=== PATIENT | male | born 1980 | race Caucasian/White ===

== ENCOUNTER 2017-04-22 11:50 | Emergency (ER) | payer OTHER ==
[~2017-04-22] VITALS: Ht 167.6 cm; Wt 91.0 kg
[~2017-04-22 11:50] MED LIST: ALBU8.5H3; BECL8.7A; LORA-52; PROM6.2514
[2017-04-22 11:54] VITALS: Ht 167.6 cm; Wt 91.0 kg
--- NOTE | 2017-04-22 13:47 | RADRPT ---
PROCEDURE: XR Cervical Spine. CLINICAL INDICATION: Neck Pain. TECHNIQUE: AP, open mouth odontoid and lateral views of the cervical spine were performed. The mac ges were reviewed on a PACS workstation. COMPARISON: None. FINDINGS: The vertebral body alignment, height and osseous mineralization are normal. There is no facet arthro tico. The uncovertebral joints are unremarkable. The intervertebral disc spaces are well maintained . There are no abnormal calcifications. The prevertebral soft tissues are normal. No radiopaque fore ign bodies are identified. The skull is intact. IMPRESSION: No acute fracture or dislocation. Negative exam. RPTAT: PP .Etta Raya MD, MD Date Time Electronically viewed and signed by .Etta Raya MD, on 04/22/2017 13:47 .F/
[2017-04-22] MEDS ORDERED: IBUP-1542 PO (14:05)
[2017-04-22] MEDS ORDERED: CYCL-319 PO (14:05)
--- NOTE | 2017-04-22 14:15 | ERD ---
ER Documentation Chief Complaint Date/Time DATE: 04/22/17 TIME: 14:09 Chief Complaint Complains of neck pain x 1 month HPI Patient is a 36-year-old male who presents to the emergency department with neck pain 1 month. Patient states 1 month ago he was playing baseball when he strained his neck. Patient states since that time he has had intermittent neck pain primarily in the morning. Patient states after moving around and going about his daily activities his pain improves. Patient denies any falls or trauma. Patient denies any radiation of the pain down his back. Patient denies any saddle anesthesia, urinary incontinence, stool incontinence, fevers, chills, chest pain or shortness of breath. Patient denies any numbness or tingling in his upper extremities. Patient denies any slurred speech, difficulty ambulating, unilateral weakness or LOC. Patient is a farm truck driver. ROS All systems reviewed and are negative except as per history of present illness. Medications Home Meds Active Scripts Cyclobenzaprine Hcl* (Cyclobenzaprine Hcl*) 10 Mg Tablet, 10 MG PO TID, #15 TAB Prov:ASYA PARSONS PA-C 04/22/17 Ibuprofen* (Motrin*) 600 Mg Tab, 600 MG PO Q6, #30 TAB Prov:ASYA PARSONS PA-C 04/22/17 Reported Medications Beclomethasone Dip* (Qvar 40*) 7.3 Gm Inha 04/17/10 Albuterol Sulfate* (Proair HFA*) 8.5 Gm Hfa.aer.ad 04/17/10 Loratadine (Alavert) 10 Mg Tablet 04/17/10 Promethazine Hcl* (Promethazine Hcl* Syrup) 6.25 Mg/5 Ml Syrup 04/17/10 Allergies Allergies: Coded Allergies: No Known Allergies (Verified Allergy, Mild, 04/22/17) PMhx/Soc History of Surgery: No Anesthesia Reaction: No Hx Neurological Disorder: No Hx Respiratory Disorders: No Hx Cardiac Disorders: No Hx Psychiatric Problems: No Hx Miscellaneous Medical Probl: No Hx Alcohol Use: Yes Hx Substance Use: No Hx Tobacco Use: Yes Smoking Status: Unknown if ever smoked FmHx Family History: No diabetes Physical Exam Vitals Vital Signs Date Time Temp Pulse Resp B/P Pulse Ox O2 Delivery O2 Flow Rate FiO2 04/22/17 11:54 98.3 72 20 150/71 98 Physical Exam GENERAL: Well-developed, well-nourished male. Appears in no acute distress. HEAD: Normocephalic, atraumatic. EYES: Pupils are equally reactive bilaterally. EOMs grossly intact. No conjunctival erythema. ENT: Moist mucous membranes. No uvula deviation. No kissing tonsils. NECK: Supple. No meningismus. Normal range of motion of the neck. No cervical midline tenderness. Tender to palpation of the right trapezius muscle. LUNG: Clear to auscultation bilaterally. No rhonchi, wheezing, rales or coarse breath sounds. HEART: Regular rate and rhythm. No murmurs, rubs or gallops. ABDOMEN: No scars, ecchymosis or rashes noted. Soft, nontender, and nondistended. Positive bowel sounds in all four quadrants. No rebound tenderness , no guarding. (-) McBurney's point tenderness. No CVA tenderness. BACK: No midline tenderness. EXTREMITIES: Equal pulses bilaterally. No peripheral clubbing, cyanosis or edema. No unilateral leg swelling. NEUROLOGIC: Alert and oriented. Moving all four extremities without any difficulty. Normal speech. Steady gait. SKIN: Normal color. Warm and dry. No rashes or lesions. Procedures/MDM ED COURSE: The patient was stable throughout ED course. I kept the patient and/or family informed of laboratory and diagnostic imaging results throughout the ED course. DIAGNOSTIC IMAGING: Read by radiologist. DIAGNOSTIC IMAGING REPORT Patient: LEN BOWERS : 1980 Age: 36 Sex: M MR #: [id number] DOS: 04/22/17 1243 Ordering MD: ASYA PARSONS PA-C Location: [facility] Room/Bed: PROCEDURE: XR Cervical Spine. CLINICAL INDICATION: Neck Pain. TECHNIQUE: AP, open mouth odontoid and lateral views of the cervical spine were performed. The images were reviewed on a PACS workstation. COMPARISON: None. FINDINGS: The vertebral body alignment, height and osseous mineralization are normal. There is no facet arthropathy. The uncovertebral joints are unremarkable. The intervertebral disc spaces are well maintained. There are no abnormal calcifications. The prevertebral soft tissues are normal. No radiopaque foreign bodies are identified. The skull is intact. IMPRESSION: No acute fracture or dislocation. Negative exam. RPTAT: PP .Etta Raya MD, Date Time Electronically viewed and signed by .Etta Raya MD, on 04/22/2017 13:47 .F/ CC: ASYA PARSONS PA-C MEDICAL DECISION MAKING: This is a 36-year-old male who presents with neck pain 1 month. She denies any falls or trauma. Vital signs were reviewed. Patient was afebrile. Patient was not hypoxic. Cervical spine was unremarkable. No acute fracture dislocation was noted. Physical exam findings were unremarkable. Patient had no unilateral weakness. Patient had no slurred speech. Patient was speaking in full sentences. Given these findings, the patient's presentation is most consistent with muscle spasms. I have a much lower clinical concern for cervical spine dislocation, cervical spine fracture, epidural abscess, cervical disk herniation, osteomyelitis, meningitis, whiplash injury, torticollis or any acute neurological deficit. PRESCRIPTIONS: Ibuprofen Flexeril-patient was advised not to use his medication when driving or operating machinery. DISCHARGE: At this time, patient is stable for discharge and outpatient management. Patient provided with a copy of all imaging studies obtained today. RICE therapy and ROM exercises were advised to avoid stiffness. I have instructed the patient to follow-up with his/her primary care physician in 1-2 days. I have discussed with the patient the possibility of needing to see an dermatology specialist for further workup and imaging if the pain persists. I have instructed the patient to promptly return to the ER for any new or worsening symptoms including increased pain, swelling, redness, warmth or fever. The patient and/or family expressed understanding of and agreement with this plan. All questions were answered. Home care instructions were provided. Patient's blood pressure was elevated (>120/80) but appears stable without evidence of hypertensive emergency, hypertensive urgency or end-organ failure. I had discussion with the patient about the risks of hypertension. I have advised the patient to follow up with his/her primary care physician for outpatient monitoring and treatment for hypertension in 2-3 days. I have instructed the patient to return to the ER for any new or worsening symptoms including chest pain, shortness of breath, headache, blurred vision, confusion, nausea, vomiting or LOC. Departure Diagnosis: Primary Impression: Muscle spasms of neck Additional Impression: Neck pain Condition: Stable Patient Instructions: Neck Pain, No Trauma Additional Instructions: Call your primary care doctor TOMORROW for an appointment during the next 1-2 days.See the doctor sooner or return here if your condition worsens before your appointment time. Do not take muscle relaxant when operating any machinery or driving. ASYA PARSONS PA-C Apr 22, 2017 14:15
== END 2017-04-22 14:23 | disposition home or self-care (01) ==
LOC: FTE 11:50
DX: M62.838 Other muscle spasm (principal)
CPT/HCPCS: 72040; Z7502

== ENCOUNTER 2019-04-20 16:43 | Emergency (ER) | payer OTHER ==
[~2019-04-20] VITALS: Ht 175.3 cm; Wt 96.0 kg
[~2019-04-20 16:43] MED LIST changes: -ALBU8.5H3; +ALBU8.5H8; +CYCL10TA7 PO; +IBUP-1542 PO; -PROM6.2514; +PROM6.2515
[2019-04-20 16:52] VITALS: Ht 175.3 cm; Wt 96.0 kg
[2019-04-20] MEDS ORDERED: DEXAMETHASONE 10 MG/ML 1 ML INJ IM STA (17:37)
[2019-04-20] MEDS ORDERED: IPRATROPIUM (NEB) 0.5 MG/2.5 ML AMP NEB STA (17:37)
[2019-04-20] MEDS ORDERED: ALBUTEROL 0.083% (NEB) 2.5 MG/3 ML AMP NEB STA (17:37)
[2019-04-20] MEDS ORDERED: D-ME473S2 PO (18:24)
[2019-04-20] MEDS ORDERED: AZIT250T PO (18:24)
[2019-04-20] MEDS ORDERED: MED4DP PO (18:24)
[2019-04-20] MEDS ORDERED: ALBU8.5H8 INH (18:24)
[2019-04-20 18:28] VITALS: BP 143/82; PULSE 83; RESP 20
--- NOTE | 2019-04-20 18:33 | ERD ---
ER Documentation Chief Complaint Chief Complaint NON-PRODUCTIVE COUGH X 4 DAYS, INTERMITTENT FEVERS/BODY ACHES HPI 38-year-old smoker with history of asthma presents to the ED complaining of shortness of breath, wheezing, cough x4 days. Cough is productive in nature. He denies any associated chest pain. He denies any fevers, chills, nausea, vomiting. No other complaints. He has not been taking any medications for this. ROS All systems reviewed and are negative except as per history of present illness. Medications Home Meds Active Scripts Methylprednisolone* (Medrol* DOSE PACK) 4 Mg/Dose-Pack Tab.ds.pk, 4 MG PO . DIRECTED, #1 PACKET Prov:DELLIGRIKIANIRISH-C 04/20/19 Albuterol Sulfate* (Proair HFA*) 8.5 Gm Hfa.aer.ad, 2 PUFF INH Q4H PRN for WHEEZING AND SOB, #1 INHALER Prov:IRISH LUU-C 04/20/19 Dextromethorphan Hb-Promethazine Hcl* (Promethazine DM* Syrup) 473 Ml Syrup, 5 ML PO Q6 PRN for COUGH for 7 Days, ML Prov:IRISH LUU-C 04/20/19 Azithromycin* (Zithromax*) 250 Mg Tablet, 250 MG PO .ZPACK DIRECTED, #6 TAB TAKE 500 MG (2 TABS) THE FIRST DAY THEN 250 MG (1 TAB) DAYS 2-5 Prov:IRISH LUU-C 04/20/19 Cyclobenzaprine Hcl* (Cyclobenzaprine Hcl*) 10 Mg Tablet, 10 MG PO TID, #15 TAB Prov:ASYA PARSONS PA-C 04/22/17 Ibuprofen* (Motrin*) 600 Mg Tab, 600 MG PO Q6, #30 TAB Prov:ASYA PARSONS PA-C 04/22/17 Reported Medications Beclomethasone Dip* (Qvar 40*) 7.3 Gm Inha 04/17/10 Albuterol Sulfate* (Proair HFA*) 8.5 Gm Hfa.aer.ad 04/17/10 Loratadine (Alavert) 10 Mg Tablet 04/17/10 Promethazine Hcl* (Promethazine Hcl* Syrup) 6.25 Mg/5 Ml Syrup 04/17/10 Allergies Allergies: Coded Allergies: No Known Allergies (Verified Allergy, Mild, 04/20/19) PMhx/Soc History of Surgery: No Anesthesia Reaction: No Hx Neurological Disorder: No Hx Respiratory Disorders: Yes (Asthma) Hx Cardiac Disorders: No Hx Psychiatric Problems: No Hx Miscellaneous Medical Probl: No Hx Alcohol Use: Yes (social) Hx Substance Use: No Hx Tobacco Use: Yes Smoking Status: Current every day smoker Physical Exam Vitals Vital Signs Date Temp Pulse Resp B/P (MAP) Pulse Ox O2 O2 Flow FiO2 Time Delivery Rate 04/20/19 80 20 96 21 17:53 04/20/19 98.9 78 20 156/95 97 16:52 (115) Physical Exam Const: No acute distress Head: Atraumatic Eyes: Normal Conjunctiva ENT: Normal External Ears, Nose and Mouth. Neck: Full range of motion. No meningismus. Resp: + Diffuse expiratory wheezing. No rhonchi, no rales. Good respiratory effort. Cardio: Regular rate and rhythm, no murmurs Skin: No petechiae or rashes Back: No midline or flank tenderness Ext: No cyanosis, or edema Neur: Awake and alert Psych: Normal Mood and Affect Results 24 hrs Current Medications Medications Dose Sig/Cori Start Time Status Last (Trade) Ordered Route PRN Stop Time Admin Dose Reason Admin Albuterol 2.5 mg ONCE STAT 04/20/19 DC 04/20/19 (Proventil NEB 17:37 04/20/19 17:51 0.083% (Neb)) 17:39 Ipratropium 0.5 mg ONCE STAT 04/20/19 DC 04/20/19 Marianna NEB 17:37 04/20/19 17:51 (Atrovent 17:39 0.02% (Neb)) 10 mg ONCE STAT 04/20/19 DC 04/20/19 Dexamethasone IM 17:37 04/20/19 17:45 (Decadron) 17:39 Procedures/MDM LABS & DIAGNOSTIC IMAGING: PROCEDURE: XR Chest. TECHNIQUE: Single frontal radiograph. CLINICAL INDICATION: Asthma exacerbation COMPARISON: None. FINDINGS: Mild low lung volumes. Mild streaky linear densities in the perihilar and peripheral lungs, which can represent airway thickening. Mild flattening of the hemidiaphragms which remain well defined. No evidence of focal consolidation, pneumothorax, or pleural effusion. Cardiomediastinal silhouette is within normal limits. Visualized osseous thorax is unremarkable. Overlying soft tissues are equally unremarkable. IMPRESSION: Mild streaky linear densities in the lungs with mild flattening of the hemidiaphragms, which may represent airway thickening. No evidence of focal or lobar consolidation, pleural effusion or pneumothorax. ED COURSE: The patient was given IM Decadron, albuterol, Atrovent The medication was well tolerated and the patient had market improvement in symptoms. The patient remained stable throughout ED course. MEDICAL DECISION MAKIN-year-old male with history of asthma and tobacco use presents with cough, wheezing or shortness of breath. He has no hypoxia here. Vital signs are stable. No evidence of respiratory distress. His lung sounds improved status post IM Decadron, and 1 DuoNeb treatment. Chest x-ray is negative for pneumonia however does show evidence of likely bronchitis. Given patient's tobacco use, w ill treat with antibiotics. Prescription for prednisone, and inhaler, promethazine also provided. He was told to follow-up with his primary care provider sometime this week. Strict return precautions were discussed. PRESCRIPTIONS: Zithromax, prednisone, pro-air, promethazine SPECIALIST FOLLOW UP RECOMMENDED: None Patient has been advised to follow up with primary care in 1-2 days. Smoking Cessation Therapy: Pt. was lectured for greater than 3 minutes on the health risks of continued smoking and the benefits of cessation. Blood Pressure Assessment: Patient's blood pressure was elevated (>120/80) but appears stable without evidence of hypertension emergency or urgency. The patient was counseled about the risks of hypertension and urged to pursue ou tpatient monitoring and therapy within a week with their primary care physician. Departure Diagnosis: Primary Impression: Bronchitis Condition: Stable Patient Instructions: Bronchitis With Wheezing (Adult) Referrals: COMMUNITY CLINICS YOU HAVE RECEIVED A MEDICAL SCREENING EXAM AND THE RESULTS INDICATE THAT YOU DO NOT HAVE A CONDITION THAT REQUIRES URGENT TREATMENT IN THE EMERGENCY DEPARTMENT. FURTHER EVALUATION AND TREATMENT OF YOUR CONDITION CAN WAIT UNTIL YOU ARE SEEN IN YOUR DOCTORS OFFICE WITHIN THE NEXT 1-2 DAYS. IT IS YOUR RESPONSIBILITY TO MAKE AN APPOINTMENT FOR FOLOW-UP CARE. IF YOU HAVE A PRIMARY DOCTOR --you should call your primary doctor and schedule an appointment IF YOU DO NOT HAVE A PRIMARY DOCTOR YOU CAN CALL OUR PHYSICIAN REFERRAL HOTLINE AT IF YOU CAN NOT AFFORD TO SEE A PHYSICIAN YOU CAN CHOSE FROM THE FOLLOWING [facility] [address] [facility] [address] [facility] [address] [facility] [address] [facility] [address] [facility] [address] [facility]. [facility] YOU HAVE RECEIVED A MEDICAL SCREENING EXAM AND THE RESULTS INDICATE THAT YOU DO NOT HAVE A CONDITION THAT REQUIRES URGENT TREATMENT IN THE EMERGENCY DEPARTMENT. FURTHER EVALUATION AND TREATMENT OF YOUR CONDITION CAN WAIT UNTIL YOU ARE SEEN IN YOUR DOCTORS OFFICE WITHIN THE NEXT 1-2 DAYS. IT IS YOUR RESPONSIBILITY TO MAKE AN APPOINTMENT FOR FOLOW-UP CARE. IF YOU HAVE A PRIMARY DOCTOR --you should call your primary doctor and schedule and appointment IF YOU DO NOT HAVE A PRIMARY DOCTOR YOU CAN CALL OUR PHYSICIAN REFERRAL HOTLINE AT . IF YOU CAN NOT AFFORD TO SEE A PHYSICIAN YOU CAN CHOSE FROM THE FOLLOWING [facility]: [facility] [address] [place] [address] [facility] [address] [place] [address] [facility] [address] [place] [address] Additional Instructions: Call your primary care doctor TOMORROW for an appointment during the next 2-4 days and bring all the information and medications prescribed. If the symptoms get worse and your provider is unavailable, return to the Emergency Department immediately. IRISH LUU PA-C Apr 20, 2019 18:33
== END 2019-04-20 18:28 | disposition home or self-care (01) ==
LOC: FTE 16:43
DX: J40 Bronchitis, not specified as acute or chronic (principal); F17.210 Nicotine dependence, cigarettes, uncomplicated
CPT/HCPCS: 71045; 94664; 96372; J1100; Z7502; Z7610

== ENCOUNTER 2019-07-06 10:29 | Emergency (ER) | payer OTHER ==
[~2019-07-06] VITALS: Ht 175.3 cm; Wt 96.3 kg
[~2019-07-06 10:29] MED LIST changes: +ACET-141 PO; +ALBU8.5H8 INH; +AZIT250T PO; +D-ME473S2 PO; +IBUP-1561 PO; +MED4DP PO
[2019-07-06 10:34] VITALS: BP 114/81; PULSE 73; RESP 18; Ht 175.3 cm; Wt 96.3 kg
== END 2019-07-06 12:34 | disposition home or self-care (01) ==
LOC: FTE 10:29
DX: M25.512 Pain in left shoulder (principal); J45.909 Unspecified asthma, uncomplicated; F17.210 Nicotine dependence, cigarettes, uncomplicated
CPT/HCPCS: 73030; Z7502